=== PATIENT | male | born 1980 | race Caucasian/White ===

== ENCOUNTER 2025-10-14 02:45 | Emergency (ER) | payer SELFPAY ==
[2025-10-14] MEDS: Acetaminophen/HYDROcodone 325-5 MG Tab PO ONE (03:32)
== END 2025-10-14 04:04 | disposition home or self-care (01) ==
LOC: MW.ED 02:45
DX: S42.024A Nondisplaced fracture of shaft of right clavicle, initial encounter for closed fracture (principal); V18.2XXA Unspecified pedal cyclist injured in noncollision transport accident in nontraffic accident, initial encounter
CPT/HCPCS: 73030; 99283; A9270

== ENCOUNTER 2025-10-14 21:13 | Emergency (ER) | payer SELFPAY | END 2025-10-15 00:56 | disposition other institution (70) | LOC: MW.ED 21:13 | DX: Z59.00 Homelessness unspecified (principal); Z02.89 Encounter for other administrative examinations; F17.200 Nicotine dependence, unspecified, uncomplicated; Z75.3 Unavailability and inaccessibility of health-care facilities | CPT/HCPCS: 99282; 99284 ==

== ENCOUNTER 2025-10-19 15:31 | Emergency (ER) | payer SELFPAY | END 2025-10-19 16:38 | disposition left against medical advice (07) | LOC: MW.ED 15:31 | DX: M25.511 Pain in right shoulder (principal); R45.4 Irritability and anger; Z79.899 Other long term (current) drug therapy; Z75.3 Unavailability and inaccessibility of health-care facilities; Z53.20 Procedure and treatment not carried out because of patient's decision for unspecified reasons; Z72.89 Other problems related to lifestyle | CPT/HCPCS: 73000-26-RT; 73000-RT; 99283 ==

== ENCOUNTER 2025-10-19 20:04 | Emergency (ER) | payer SELFPAY | END 2025-10-19 20:44 | disposition home or self-care (01) | LOC: MW.ED 20:04 | DX: S43.101A Unspecified dislocation of right acromioclavicular joint, initial encounter (principal); Z75.3 Unavailability and inaccessibility of health-care facilities; X58.XXXA Exposure to other specified factors, initial encounter | CPT/HCPCS: 99283; A9270 ==